=== PATIENT | female | born 2000 | race Hispanic/Latino ===

== ENCOUNTER 2019-06-05 06:49 | Day surgery (SDC) | payer MEDICAID ==
[2019-06-03 16:30] VITALS: BP 114/57
[2019-06-03 16:43] LABS: BASOPHILS % (AUTO) 0.2 % (0.0-5.0); EOSINOPHILS % (AUTO) 0.6 % (0.0-8.0); HEMATOCRIT 37.4 % (36-48); LYMPHOCYTES % (AUTO) 16.2 % (21.0-51.0); MEAN CORPUSCULAR HGB CONC 34.3 g/dL (32.0-36.0); MEAN CORPUSCULAR VOLUME 87.4 fL (80-100); MONOCYTES % (AUTO) 6.6 % (3.0-13.0); NEUTROPHILS % (AUTO) 76.4 % (40.0-77.0); PLATELET COUNT (AUTO) 202 K/uL (130-400); RED BLOOD CELL COUNT(AUTO) 4.27 MIL/uL (4.00-5.50); RED CELL DISTRIBUTION WIDTH 13.9 % (11.0-15.5); WHITE BLOOD COUNT (AUTO) 10.6 K/uL (4.8-10.8)
[~2019-06-05] VITALS: Ht 157.5 cm; Wt 56.8 kg
[2019-06-05 06:56] VITALS: BP 119/55
[2019-06-05] MEDS ORDERED: LACTATED RINGERS 1000ML 1,000 ML IV SCH (08:00)
[2019-06-05] MEDS ORDERED: FENTANYL CITRATE PF 50 MCG/1 ML 2ML VIAL ONE (08:19)
== END 2019-06-05 14:00 | disposition home or self-care (01) ==
LOC: DAH 06:49 → WSH 06:49 → DAH 14:00
DX: N88.3 Incompetence of cervix uteri (principal); I10 Essential (primary) hypertension; Z88.1 Allergy status to other antibiotic agents
CPT/HCPCS: 36415; 57700; 85025; A4606; J3010; J7120 ×2; G0378

== ENCOUNTER 2019-07-29 16:41 | Observation (INO) | payer MEDICAID ==
[2019-07-29 17:39] LABS: APPEARANCE,URINE Cloudy (CLEAR); BILIRUBIN,URINE Negative (NEGATIVE); COLOR,URINE Yellow (YELLOW); GLUCOSE, URINE (UA) Negative (NEGATIVE); KETONES,URINE Negative (NEGATIVE); LEUKOCYTE ESTERASE ,URINE Large (NEGATIVE); NITRATE,URINE Negative (NEGATIVE); OCCULT BLOOD,URINE Moderate (NEGATIVE); PH,URINE 6.5 (5.0-8.0); PROTEIN,URINE Negative (NEGATIVE)
[2019-07-29 17:59] LABS: BACTERIA,URINE Moderate /HPF (None Seen); MUCUS,URINE Few LPF (None Seen)
== END 2019-07-29 19:05 | disposition home or self-care (01) ==
LOC: EDH 16:41 → LDH 16:54
DX: O26.892 Other specified pregnancy related conditions, second trimester (principal); N89.8 Other specified noninflammatory disorders of vagina; O99.512 Diseases of the respiratory system complicating pregnancy, second trimester; J45.909 Unspecified asthma, uncomplicated; Z3A.21 21 weeks gestation of pregnancy
CPT/HCPCS: 76805; 81001; 99284; G0378 ×2

== ENCOUNTER 2019-08-14 05:20 | Observation (INO) | payer MEDICAID ==
[~2019-08-14] VITALS: Ht 157.5 cm; Wt 63.5 kg
[2019-08-14] MEDS ORDERED: LACTATED RINGERS 1000ML IV PRN (05:45)
[2019-08-14 06:02] LABS: BILIRUBIN,URINE Negative (NEGATIVE); COLOR,URINE Yellow (YELLOW); GLUCOSE, URINE (UA) Negative (NEGATIVE); KETONES,URINE Negative (NEGATIVE); LEUKOCYTE ESTERASE ,URINE Large (NEGATIVE); NITRATE,URINE Negative (NEGATIVE); OCCULT BLOOD,URINE Negative (NEGATIVE); PH,URINE 5.5 (5.0-8.0); PROTEIN,URINE Negative (NEGATIVE)
[2019-08-14 06:03] LABS: APPEARANCE,URINE SLIGHTLY CLOUDY (CLEAR)
[2019-08-14 06:10] LABS: AMPHET/METH SCREEN,URINE NEGATIVE (NEGATIVE); BARBITURATE SCREEN, URINE NEGATIVE (NEGATIVE); BENZODIAZEPINES SCREEN,URINE NEGATIVE (NEGATIVE); CANNABINOID SCREEN,URINE NEGATIVE (NEGATIVE); COCAINE SCREEN,URINE NEGATIVE (NEGATIVE); OPIATE SCREEN,URINE NEGATIVE (NEGATIVE); PHENCYCLIDINE SCREEN,URINE NEGATIVE (NEGATIVE)
[2019-08-14 06:12] VITALS: BP 128/58
[2019-08-14 06:16] LABS: BACTERIA,URINE Few /HPF (None Seen); MUCUS,URINE Moderate LPF (None Seen); RBC,URINE None Seen /HPF (0-1); SQUAMOUS EPITHELIAL CELL,UR Moderate /HPF (0-2)
[2019-08-14] MEDS ORDERED: ACETAMINOPHEN 325 MG TAB PO SCH (06:45)
== END 2019-08-14 07:28 | disposition home or self-care (01) ==
LOC: EDH 05:20 → LDH 05:21
DX: O99.89 Other specified diseases and conditions complicating pregnancy, childbirth and the puerperium (principal); M54.5 Low back pain; Z88.1 Allergy status to other antibiotic agents; Z3A.24 24 weeks gestation of pregnancy
CPT/HCPCS: 80305; 81001; 99284; G0378 ×2

== ENCOUNTER 2019-09-16 07:15 | Observation (INO) | payer MEDICAID ==
[~2019-09-16] VITALS: Ht 157.5 cm; Wt 65.8 kg
[2019-09-16 07:49] VITALS: BP 121/62
[2019-09-16] MEDS ORDERED: PHARMACY COMMUNICATION MISC SCH (08:00)
[2019-09-16] MEDS ORDERED: FLU VACC QS2019-20 36MOS UP/PF 60 MCG/0.5 ML ML IM ONE (08:30)
[2019-09-16] MEDS ORDERED: PREN-154 PO (08:33)
[2019-09-16] MEDS ORDERED: FLU VACC QS2019-20 36MOS UP/PF 60 MCG/0.5 ML ML IM SCH (08:45)
[2019-09-16] MEDS ORDERED: DIPH,PERTUSS(ACELL),TET VAC/PF 0.5 ML VIAL IM SCH (08:45)
[2019-09-16] MEDS: CELESTONE SOLUSPAN 6 MG/ML 5ML VIAL IM SCH (09:38)
[2019-09-16 11:57] VITALS: BP 126/56
[2019-09-16 16:04] VITALS: BP 118/66
[2019-09-16 19:20] VITALS: BP 121/56
--- NOTE | 2019-09-16 19:30 | NUR ---
FHT taken via doppler - 140 Addendum: 09/16/19 at 2122 by CONNIE BRANDT RN Amended: Links added.
[2019-09-16 23:28] VITALS: BP 123/75
[2019-09-17 03:32] VITALS: BP 116/50
[2019-09-17 07:32] VITALS: BP 123/58
[2019-09-17] MEDS: CELESTONE SOLUSPAN 6 MG/ML 5ML VIAL IM SCH (07:49)
--- NOTE | 2019-09-17 09:30 | NUR ---
DISCHARGE PT LEFT UNIT VIA WHEELCHAIR, ACCOMPANIED BY SIGNIFICANT OTHER. DENIED PAIN AND HAD NO COMPLAINTS. TRANSPORTED BY PERSONAL VEHICLE.
== END 2019-09-17 09:30 | disposition home or self-care (01) ==
LOC: WSH 07:15
PROVIDERS: ADMIT Specialist; ATTEND Specialist
DX: O34.33 Maternal care for cervical incompetence, third trimester (principal); Z23 Encounter for immunization; Z3A.29 29 weeks gestation of pregnancy
CPT/HCPCS: 90471; 90472; 90686; 90714; 96372 ×2; G0008; G0378 ×25; J0702 ×2

== ENCOUNTER 2019-10-02 16:33 | Observation (INO) | payer MEDICAID ==
[~2019-10-02] VITALS: Ht 157.5 cm; Wt 68.9 kg
[~2019-10-02 16:33] MED LIST: PREN-154 PO
[2019-10-02 17:31] LABS: APPEARANCE,URINE Clear (CLEAR); BILIRUBIN,URINE Negative (NEGATIVE); COLOR,URINE Yellow (YELLOW); GLUCOSE, URINE (UA) Negative (NEGATIVE); KETONES,URINE Negative (NEGATIVE); LEUKOCYTE ESTERASE ,URINE Moderate (NEGATIVE); NITRATE,URINE Negative (NEGATIVE); OCCULT BLOOD,URINE Negative (NEGATIVE); PH,URINE 6.5 (5.0-8.0); PROTEIN,URINE Negative (NEGATIVE)
[2019-10-02 17:56] LABS: BACTERIA,URINE Few /HPF (None Seen); MUCUS,URINE Few LPF (None Seen)
[2019-10-02] MEDS ORDERED: LACTATED RINGERS 1000ML 1,000 ML IV SCH (18:15)
[2019-10-02 18:30] VITALS: BP 106/68
[2019-10-02] MEDS ORDERED: CEFTRIAXONE SODIUM 1 GM IVP SCH (19:30)
== END 2019-10-02 19:55 | disposition home or self-care (01) ==
LOC: LDH 16:33
PROVIDERS: ADMIT Specialist; ATTEND Specialist
DX: O60.03 Preterm labor without delivery, third trimester (principal); Z3A.31 31 weeks gestation of pregnancy
CPT/HCPCS: 81001; 96374; G0378 ×2; J0696; J7120; 96360